=== PATIENT | male | born 1955 | race Caucasian/White ===

== ENCOUNTER → 2017-03-31 | Outpatient (CLI) | payer BC, OTHER ==
[~2017-03-31] MED LIST: ALIGN4 MG; ALTACE10 M1 PO; AMBIEN 10 MG TA10 MG PO; ASTELIN30 ML; CARDIZEM CD240 MG PO; CENTRUM SILVER1 EAC1; CLONAZEPAM PO; COQ-10100 MG; FLEXERIL; HYDROCODON-ACE1 EAC7; LIPITOR80 MG PO; MAGNES; MIDRIN CAPSULE1 CAP; MINIPRIN81 MG; NEXIUM40 MG PO; SYNTHROID PO; TRAMADOL 50 MG50 MG PO; ZYRTEC
== END ==
LOC: RAD 13:39
DX: R10.10 Upper abdominal pain, unspecified (principal)

== ENCOUNTER → 2017-04-02 | Outpatient (CLI) | payer BC, OTHER | LOC: ULTRA 15:09 | DX: R10.84 Generalized abdominal pain (principal) ==

== ENCOUNTER → 2017-10-25 | Outpatient (CLI) | payer BC, OTHER ==
[2017-10-25 09:34] LABS: CREATININE 1.1 mg/dL (0.7-1.3)
== END ==
LOC: MRI 10-11 10:13
PROVIDERS: Internal Medicine Pulmonary Disease
DX: M50.30 Other cervical disc degeneration, unspecified cervical region (principal); M48.02 Spinal stenosis, cervical region; G43.009 Migraine without aura, not intractable, without status migrainosus; I10 Essential (primary) hypertension; M25.78 Osteophyte, vertebrae; E78.5 Hyperlipidemia, unspecified; E89.0 Postprocedural hypothyroidism

== ENCOUNTER → 2018-01-21 | Outpatient (CLI) | payer BC, OTHER ==
--- NOTE | ~2018-01-21 | EXE ---
[facility] [address] STRESS ECHOCARDIOGRAM Name: JACINDA DAWSON Room #: REG CL MYael#: [id number] Admission: 01/21/18 Attend Phys: Monica Copeland Discharge: Date of : 57 Date of Service: 01/22/18 1512 Report #: [id number] THIS REPORT FOR: //name// APPROVED REPORT Exam: Stress Echocardiogram Indication: Pre-Operative CV evaluation Patient Location: Out-Patient Stress Nurse: Bing Vela RN Room #: Echo lab Status: routine Ht: 5 ft 8 in HR: 66 bpm BP: 133/86 mmHg Medical History Cardiac Risk Factors: FHX of CAD, HTN, Hyperlipidemia Procedure The patient underwent an Exercise Stress Test using the Luca Protocol. Blood pressure, heart rate, and EKG were monitored. An Echocardiogram was performed by dictaphone technician in four stages in quad fashion. At peak stress, four selected images were obtained and placed side by side with resting images for comparison. Stress Test Details Stress Test: Exercise stress testing was performed using a Luca protocol. HR Resting HR: 66 bpm Max Heart Rate (APMHR): 159 bpm Max HR Achieved: 169 bpm Target HR (85% APMHR): 135 bpm % of APMHR: 106 Recovery HR: 104 bpm HR response to stress: Normal HR response to stress BP Resting BP: 133/86 mmHg Max BP: 158/90 mmHg Recovery BP: 138/80 mmHg ECG Clinical Reason for Termination: Maximal effort Exercise duration: 12 min sec [facility] [email or web address] [address] STRESS ECHOCARDIOGRAM Name: JACINDA DAWSON Room #: REG CL [facility].#: [id number] Admission: 01/21/18 Attend Phys: Monica Copeland Discharge: Date of : 57 Date of Service: 01/22/181511 Report #: [id number] Highest Stage Achieved: Stage 4: 4.2 mph at 16% grade. Exercise capacity: 13.7 METs Overall Exercise Capacity for Age: Good Pre-Stress Echo The resting Echocardiogram showed normal left ventricular contractility with an estimated Ejection Fraction of about >55%. Post-Stress Echo The stress Echocardiogram showed normal left ventricular contractility with an estimated Ejection Fraction of about 65-70%. Clinical Normal augmentation of myocardial wall segments using a 17 segment model. Conclusion Clinical Response: Non-ischemic Exercise Capacity: Average Stress ECG Response: Non-ischemic Stress Echo Images: Non-ischemic Other Information Study Quality: Good <ELECTRONICALLY SIGNED> By: Koko Colón MD, [facility] 01/22/181511 11 1512 Koko Colón MD, FACC /INF
[2018-01-21 15:44] LABS: HEMATOCRIT 43.5 % (42.0-52.0); MCHC 34.5 g/dL (28.0-37.0); MCV 95.7 fL (80.0-100.0); RBC 4.55 mil/uL (4.50-6.00); WBC 4.4 thou/uL (4.0-11.0)
[2018-01-21 15:57] LABS: CALCIUM 9.6 mg/dL (8.5-10.1); CREATININE 1.2 mg/dL (0.7-1.3); POTASSIUM 4.3 mmol/L (3.5-5.1)
[2018-01-21 16:00] LABS: ALBUMIN 4.3 g/dL (3.4-5.0); MAGNESIUM 2.1 mg/dL (1.8-2.4); TOTAL BILIRUBIN 0.5 mg/dL (<0.1-1.0); TOTAL PROTEIN 6.6 g/dL (6.4-8.2)
== END ==
LOC: CV 11:46
PROVIDERS: Internal Medicine Pulmonary Disease
DX: Z01.818 Encounter for other preprocedural examination (principal); I25.10 Atherosclerotic heart disease of native coronary artery without angina pectoris; I10 Essential (primary) hypertension; I15.9 Secondary hypertension, unspecified

== ENCOUNTER → 2019-12-21 | Outpatient (CLI) | payer BC, OTHER ==
[~2019-12-21] VITALS: Ht 172.7 cm; Wt 81.6 kg
[~2019-12-21] MED LIST changes: +ASPIRIN EC81 M1 PO; +CENTRUM SILVER1 EAC7 PO; +CO Q-10300 MG PO; -COQ-10100 MG; -HYDROCODON-ACE1 EAC7; +HYDROCODON-ACE1 EAC7 PO; -MINIPRIN81 MG; +PROTONIX40 M4 PO; -SYNTHROID PO; +SYNTHROID200 MCG PO; +ZANAFLEX4 M2 PO; -ZYRTEC; +ZYRTEC10 M5 PO
--- NOTE | ~2019-12-21 | HPC ---
[facility] [place] [address] PAIN MANAGEMENT CONSULTATION Name: JACINDA DAWSON Room #: REG CL MDeepti.#: [id number] Admission: 12/21/19 Attend Phys: Daniel Eid MD Discharge: Date of : 57 Report #: [id number] THIS REPORT FOR: //name// CC: Ludwin Eid DATE OF SERVICE: 12/21/2019 CHIEF COMPLAINT: Pain in the neck and shoulders and constant daily headache. The patient is a pleasant 64-year-old who I am seeing today at the request of Dr. Feng Rust a good friend of the patient. He has had headaches, he reports since 1979. Headaches have been part of his life for at least the last 40 years. He has had multiple treatments. He has tried every pain medication regimen imaginable and has been seen at not only and their Neurology Department where he received Botox and their Pain Clinic where he received ablation, but at the [facility] where he received multiple medication trials. He has been to the [facility] 3 times, and most recently in the last 6 months, he was seen by the pain physicians there and also received radiofrequency ablation of the cervical facet joints, which did not provide relief. He has never had a procedural benefit. He has other pain management doctor was [facility] who [facility] him this year and gave him a cervical epidural injection also without relief. He reports he has a familial history of headaches. Both his father who early cardiac disease and his brother had similar severe headaches. His brother was able to be treated by Depakote but the patient did not find this helpful and had side effects. Over the last few years, he has started transition from daily headaches to daily headaches with an occasional classic migraine. These happen about once every month or two and can be severe. They do not have an aura, but they involve one side of his head. He has taken some Aimovig with some help with this component, but it does not help with his chronic daily headaches. Current headaches are bilateral, they begin in the occiput but radiate into the frontal region. They can be incapacitating at times and causes him to limit his activities. His pain impact score is 52/70, this is quite high showing significant impact in general activity, mood, walking, relations with others, sleep and enjoyment of life. CURRENT MEDICINES: Synthroid 200 mcg once daily, Lipitor 80 mg once daily for at least the last 15 years, perhaps longer; Cardizem 240 mg daily, ramipril 10 mg daily, pantoprazole 40 mg daily, clonazepam 0.5 mg b.i.d., Ambien 10 mg at bedtime, tizanidine 4 mg daily, hydrocodone 5/325 three tablets daily, 81 mg aspirin, Zyrtec, CoQ10, Centrum Silver. [address] [address] PAIN MANAGEMENT CONSULTATION Name: JACINDA DAWSON Room #: REG RAQUEL Carlson#: [id number] Admission: 12/21/19 Attend Phys: Daniel Eid MD Discharge: Date of : 57 Report #: [id number] Opioid review shows that he has been on opioids only for the last 2-3 years. Of all of the medication trials he has had, he has found opioids to provide the most relief. He on occasion has taken more than 3 a day, up to 4, but when he runs out. he is concerned. He is worried that he is taking the medication that is so controversial and he has some fear of opioids. Because of the improvement in pain and daily function, he continues to take them. He has completed an opioid risk tool and his score is 1. This is considered very low risk and is associated with his history of depression from his headaches. Otherwise, the score would be 0. He is exceptionally low risk for addiction. ALLERGIES: None. PAST MEDICAL HISTORY: Positive for hypertension, thyroid disease. FAMILY HISTORY: Very strong for cardiac disease and chronic headaches. SOCIAL HISTORY: Denies use of tobacco, denies use of alcohol, and has not smoked marijuana. 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 PHYSICAL EXAMINATION: GENERAL: He is pleasant, alert and oriented. HEENT: Normal. EOMs are intact. Mucous membranes are moist. He has some tenderness below the occiput. Cervical exam reveals decreased range of motion in flexion, extension, rotation, [id number] tilt. He complains of some crepitus with these movements. All movements are reduced by about 50% except for flexion, which is fairly normal. He has tenderness throughout the cervicalis splenius, capitis, trapezius and all muscles of the neck and upper shoulder girdle. CHEST: Clear. CARDIAC: Rhythm is regular. MUSCULOSKELETAL: Normal otherwise throughout. Deep tendon reflexes are normal at the biceps, triceps and brachioradialis, slightly diminished throughout. He has normal reflexes in lower extremities. Strength and sensation are normal in the upper and lower extremities. MRI scan is reviewed. It does show fairly significant spondylosis. There is a bit of degenerative disk disease. Although the report suggests anterior spondylolisthesis at C3-C4, it is certainly minimal. Mild spinal stenosis seen at C4-C5, but this is much less than we normally see in patients with radiculopathy. Multilevel facet degenerative changes are seen consistent with age. IMPRESSION: 1. Chronic daily headaches with some cervicogenic myofascial components radiating into the frontal region. [facility] [address] [place] [address] PAIN MANAGEMENT CONSULTATION Name: JACINDA DAWSON Room #: REG [facility] Lilly.#: [id number] Admission: 12/21/19 Attend Phys: Daniel Eid MD Discharge: Date of : 57 Report #: [id number] 2. 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 3. Hypertension. 4. Hyperlipidemia. RECOMMENDATIONS: 1. We discussed medications first. He has had multiple medication trials prior to initiating opioid therapy. Opioids are effective for him. We discussed the CDC guidelines at length. We discussed the opioid crisis. We calculated his morphine milligram equivalency. It is 15. Occasionally, he will take 20 morphine milligram equivalents on a severe day. He does not take it as an addict does but takes it as a medicine and finds that it is the most helpful for his pain and function that he has identified. It does not take his pain away, drops his pain by about 50%, but this is enough to allow him to function. He has had constipation and has used MiraLax. I suggest Senokot-S as perhaps some milder option taken at bedtime. MiraLax can be also taken as an adjunct. We discussed the effect of opioids on testosterone. He at 64, we would expect it to be low and may be lower than usual with daily use of hydrocodone even at low dose 15 MME. We reviewed all of his medications for possible headache contribution. Lipitor has been shown to cause headaches in the high percentage of patients. It is listed as #2 side effect. He is on 80 mg. His correlation of headache is fairly close to his initiation of Lipitor to 80 over 15 years ago. I do believe that statin therapy is likely warranted based on his history, but perhaps rotation to a different statin. Livalo may have fewer side effects. A trial off Lipitor for 3 weeks may give some indication. I want him to discuss that with Dr. Amin before he undertakes a short trial off of it to see about its component or contribution to his headache. We discussed kinesophobia. He does not move his neck much. This is probably not the best thing to do for someone with spondylosis. Like other joints, gentle range of motion seems to be of benefit. I demonstrated for him some simple range of motion exercises that he can performance in sets of 5, 3-4 times a day. This may improve range of motion, may improve joint mobility, and may also be helpful for any myofascial components. He is open to trying that. I reminded him that this might take months. I would not necessarily recommend stronger or higher doses of opioids; however, given the half-life of hydrocodone a fourth tablet a day for a total of 40 MME might provide him benefit. He could have a morning, noon, evening and bedtime dose. I am currently less apt to suggest a long-acting opioid for someone like the patient and would use low dose hydrocodone to achieve the lowest effective dose. I do not recommend injections at this time, but could consider some facet injections with triamcinolone. He has not had those. He seems to respond to [facility] [address] [place] [address] PAIN MANAGEMENT CONSULTATION Name: JACINDA DAWSON Room #: NAVEED Carlson#: [id number] Admission: 12/21/19 Attend Phys: Daniel Eid MD Discharge: Date of : 57 Report #: [id number] local anesthetic around the facet joints when he had his medial branch nerve blocks. No other suggestions. Thanks for the consultation. By: [id number] Daniel Eid MD /nt
[2019-12-21 14:29] VITALS: BP 137/92
--- NOTE | 2019-12-21 14:50 | NUR ---
Pain Clinic Assessment: 1. History of Osteoarthritis: NECK History of Rheumatoid Arthritis: DENIES 2. Height: 5 ft. 8 in. 172.7 cm. Weight: 180.0 lb. oz. 81.648 kg. Patient's BMI: 27.4 3. Vital Signs: BP: 137/92 Pulse: 57 Resp: 14 Temp: 02 Sat: 99 ECG Mon: 4. Pain Intensity: 6 5. Fall Risk: Dizziness: N Needs help standing or walking: N Fallen in the last 3 months: N Fall risk comments: 6. Patient on Blood Thinner: None 7. History of Hypertension: Y 8. Opioid Therapy greater than 6 weeks: Opiate Contract Signed: 9. Risk Assessment Tool Provided: 1-low 10. Functional Assessment Tool: 11. Recreational Drug Use: Never Drug Type: Tobacco Use: Never Smoker Tobacco Type: Amount or Packs/day: How Many Years: Alcohol Use: No Frequency: Quant:
== END ==
LOC: PAIN 06:49
DX: M54.2 Cervicalgia (principal); R51 Headache; I10 Essential (primary) hypertension; E78.5 Hyperlipidemia, unspecified

== ENCOUNTER → 2020-06-06 | Outpatient (CLI) | payer BC, OTHER ==
[~2020-06-06] VITALS: Ht 172.7 cm; Wt 78.1 kg
--- NOTE | ~2020-06-06 | HPC ---
[facility] [place] [address] PAIN MANAGEMENT CONSULTATION Name: JACINDA DAWSON Room #: REG CLMariya MAma.#: [id number] Admission: 06/06/20 Attend Phys: Daniel Eid MD Discharge: Date of : 57 Report #: [id number] THIS REPORT FOR: cc: Yana Rust MD, A. Cosmo MD Morgan, Richard L. MD ~ CC: Ludwin Eid Followup visit for severe neck pain with occipital radiation, constant daily headaches and radiating shoulder pain with referred and radicular components. Dr. Rust called me and asked me if I would see the patient again. I saw him in November and wrote an extensive consult, which is on the chart, which I reviewed prior to his visit of today. We discussed that consultation. He continues to take medications, but has not found them to be adequate. His constant daily pain score is 6/10 and his pain interferes with most activities of daily living. He describes it as a constant, burning, aching and stabbing. His headaches are getting worse. They seem to have a cervicogenic origin. Reviewing his records, I again find it remarkable that he has been seen by so many physicians and so widely over the last several years. He has been to Neurology, [facility], [facility] and seen other pain physicians throughout the community. He has had many injections including multiple cervical facet joint injections and treatments including radiofrequency perhaps only one epidural injection by Dr. [facility], and during today's exam, I noticed 2 small scars that I did not see during my initial exam. It was only from these that he remembered that he had a surgical decompression procedure performed many years ago and the scars are the only telltale signs with that history. Mechanical treatments including massage and gentle range of motion exercises have not been pursued. He remains on medications prescribed by ___, his primary care physician. He is on oxycodone 10/325 four times daily and this helps marginally. MEDICATIONS: Levothyroxine, diltiazem, ramipril, clonazepam 0.25 mg b.i.d., Ambien, cetirizine, aspirin, CoQ10, tizanidine 4 mg daily, atorvastatin, pantoprazole, and the mentioned hydrocodone 5/325. He has completed an opioid risk tool in our clinic. His ORT score is 1. This suggests a low risk of addiction. His functional assessment score repeated today, it is 44/70. Gauges impact of pain on day-to-day activities, he scored a 52/70 at his initial visit, so there is a slight improvement there albeit [facility] [address] [place] [address] PAIN MANAGEMENT CONSULTATION Name: JACINDA DAWSON Room #: REG CLI Aldo#: [id number] Admission: 06/06/20 Attend Phys: Daniel Eid MD Discharge: Date of : 57 Report #: [id number] somewhat subjective. PHYSICAL EXAMINATION: GENERAL: We were both wearing masks because of COVID restrictions. VITAL SIGNS: He is 5 feet 8, 172, BMI 26. Blood pressure 130/87, heart rate 52, respirations 18, O2 sat 97 on room air. Pain intensity 6/10. HEENT: Reveals pupils to be equal, round, and reactive to light. EOMs are intact. NECK: Restricted in all planes with increased pain in the neck posteriorly and a fairly small localized area in the mid neck with both flexion and extension, both lateral tilt right and left and rotational movements as well. Examination of the neck reveals the two scars just below the occiput from prior surgical procedure. There is modest muscle tension suggesting myofascial component. NEUROLOGIC: Reveals normal deep tendon reflexes bilaterally at biceps, triceps and brachioradialis. Reflexes are normal in the lower extremities. Good groutman strength, biceps and triceps strength. Denies numbness in the fingers. Myofascial tender points are noted throughout the neck and shoulders. IMPRESSION: Chronic cervicalgia with corresponding cervicogenic headaches. Myofascial pain, facet mediated pain and some evidence of radiculopathy. RECOMMENDATIONS: My recommendations are little change from my initial consult on 12/21/2019. I did discuss some simple procedures that might be tried once again simply to provide short-term pain relief. Epidural injection, I think would be worthwhile. It is a simple injection can be performed safely in a number of our patients with multifocal pain caused by many pain generators and respond favorably with symptomatic reduction in pain lasting months with a single epidural injection. If we can achieve that it might be a tool for him going forward. I would also consider the use of lateral approach facet injections into the capsule around C3-C4, C4-C5 where he has maximal tenderness bilaterally. These can be done, I think safely with biplanar fluoroscopic views and may service deep trigger point as well. Plans to return for epidural trial. By: [id number] Daniel Eid MD /nt
[2020-06-06 11:19] VITALS: BP 130/87
--- NOTE | 2020-06-06 11:24 | NUR ---
Pain Clinic Assessment: 1. History of Osteoarthritis: NECK History of Rheumatoid Arthritis: DENIES 2. Height: 5 ft. 8 in. 172.7 cm. Weight: 172.2 lb. oz. 78.109 kg. Patient's BMI: 26.2 3. Vital Signs: BP: 130/87 Pulse: 52 Resp: 18 Temp: 02 Sat: 97 ECG Mon: 4. Pain Intensity: 6 5. Fall Risk: Dizziness: N Needs help standing or walking: N Fallen in the last 3 months: N Fall risk comments: 6. Patient on Blood Thinner: None 7. History of Hypertension: Y 8. Opioid Therapy greater than 6 weeks: Y Opiate Contract Signed: 9. Risk Assessment Tool Provided: 1-low 10. Functional Assessment Tool: 11. Recreational Drug Use: Never Drug Type: Tobacco Use: Never Smoker Tobacco Type: Amount or Packs/day: How Many Years: Alcohol Use: No Frequency: Quant:
== END ==
LOC: PAIN 07:04
PROVIDERS: ATTEND Anesthesiology Pain Medicine
DX: R51 Headache (principal); M54.12 Radiculopathy, cervical region; Z79.899 Other long term (current) drug therapy

== ENCOUNTER → 2020-06-17 | Outpatient (CLI) | payer BC, OTHER ==
[~2020-06-17] VITALS: Ht 172.7 cm; Wt 77.4 kg
--- NOTE | ~2020-06-17 | HPC ---
[facility] [place] [place] [address] PAIN MANAGEMENT CONSULTATION Name: JACINDA DAWSON Room #: REG CL M..#: [id number] Admission: 06/17/20 Attend Phys: Daniel Eid MD Discharge: Date of : 57 Report #: [id number] THIS REPORT FOR: cc: Markell Acosta MD, Michael E. MD Morgan,Daniel Marcano MD ~ CC: Ludwin Eid DATE OF SERVICE: 06/17/2020 Followup visit for cervical pain with occipital and cervicogenic headaches. After lengthy consultation on 06/06/2020, the patient is here today for cervical epidural injection, we discussed. Plan is to inject him at the base of the cervical spine with a larger volume of medicine fully spread throughout the canal. We will see if we can provide some interruption of the pain cycle through this procedure. Potential benefits and risks were reviewed in some detail. He is anxious to proceed. DIAGNOSES: Cervicalgia with cervicogenic headaches, myofascial pain and radiculopathy. PROCEDURE: Cervical epidural injection under fluoroscopic guidance. After informed consent, he was taken to the fluoroscopic suite, placed prone, skin prepped with ChloraPrep. Skin was anesthetized over C7-T1. A 20-gauge Tuohy epidural needle advanced in first attempt in the epidural space with loss of resistance technique. There was no blood or CSF aspirated. A 1 mL of Omnipaque injected. Good spread of dye observed along the right lateral recess. Interestingly, the needle was left paramedian on the x-ray, but the dye tended to spread initially at least to the right. It was then followed by 4 mL of 0.5% lidocaine mixed with 80 mg of triamcinolone. He tolerated the procedure well. There were no complications. He was observed in recovery room for a short time and discharged. Followup visit planned in 2-4 weeks. Further treatments will depend solely on his response, may consider this as a treatment option going forward if he has a favorable response and duration. By: [id number] Daniel Eid MD /nt
[2020-06-17 15:09] VITALS: BP 129/90
--- NOTE | 2020-06-17 15:20 | NUR ---
Pain Clinic Assessment: 1. History of Osteoarthritis: NECK History of Rheumatoid Arthritis: DENIES 2. Height: 5 ft. 8 in. 172.7 cm. Weight: 170.6 lb. oz. 77.384 kg. Patient's BMI: 25.9 3. Vital Signs: BP: 129/90 Pulse: 52 Resp: 14 Temp: 02 Sat: 100 ECG Mon: 4. Pain Intensity: 7-8 5. Fall Risk: Dizziness: N Needs help standing or walking: N Fallen in the last 3 months: N Fall risk comments: 6. Patient on Blood Thinner: None 7. History of Hypertension: Y 8. Opioid Therapy greater than 6 weeks: Y Opiate Contract Signed: 9. Risk Assessment Tool Provided: 1-low 10. Functional Assessment Tool: 11. Recreational Drug Use: Never Drug Type: Tobacco Use: Never Smoker Tobacco Type: Amount or Packs/day: How Many Years: Alcohol Use: No Frequency: Quant:
== END | disposition home or self-care (01) ==
LOC: PAIN 07:14
PROVIDERS: ATTEND Anesthesiology Pain Medicine
DX: M54.12 Radiculopathy, cervical region (principal); M79.18 Myalgia, other site; G44.89 Other headache syndrome; G89.29 Other chronic pain; Z98.890 Other specified postprocedural states; Z79.899 Other long term (current) drug therapy

== ENCOUNTER → 2021-02-03 | Outpatient (CLI) | payer BC, OTHER ==
[~2021-02-03] VITALS: Ht 172.7 cm; Wt 78.7 kg
[2021-02-03 13:42] VITALS: BP 131/74
--- NOTE | 2021-02-03 13:51 | NUR ---
Pain Clinic Assessment: 1. History of Osteoarthritis: NECK History of Rheumatoid Arthritis: DENIES 2. Height: 5 ft. 8 in. 172.7 cm. Weight: 173.6 lb. oz. 78.744 kg. Patient's BMI: 26.4 3. Vital Signs: BP: 131/74 Pulse: 57 Resp: 14 Temp: 02 Sat: 99 ECG Mon: 4. Pain Intensity: 7 5. Fall Risk: Dizziness: N Needs help standing or walking: N Fallen in the last 3 months: N Fall risk comments: 6. Patient on Blood Thinner: None 7. History of Hypertension: Y 8. Opioid Therapy greater than 6 weeks: Y Opiate Contract Signed: 9. Risk Assessment Tool Provided: 1-low 10. Functional Assessment Tool: 11. Recreational Drug Use: Never Drug Type: Tobacco Use: Never Smoker Tobacco Type: Amount or Packs/day: How Many Years: Alcohol Use: No Frequency: Quant:
== END ==
LOC: PAIN 06:54
PROVIDERS: ATTEND Anesthesiology Pain Medicine
DX: M54.16 Radiculopathy, lumbar region (principal); R51.9 Headache, unspecified; M54.81 Occipital neuralgia; Z88.8 Allergy status to other drugs, medicaments and biological substances; Z79.899 Other long term (current) drug therapy

== ENCOUNTER → 2021-02-13 | Outpatient (CLI) | payer BC, OTHER ==
[~2021-02-13] VITALS: Ht 172.7 cm; Wt 77.1 kg
[2021-02-13 08:57] VITALS: BP 118/84
--- NOTE | 2021-02-13 09:00 | NUR ---
Pain Clinic Assessment: 1. History of Osteoarthritis: NECK History of Rheumatoid Arthritis: DENIES 2. Height: 5 ft. 8 in. 172.7 cm. Weight: 170.0 lb. oz. 77.112 kg. Patient's BMI: 25.9 3. Vital Signs: BP: 118/84 Pulse: 64 Resp: 16 Temp: 02 Sat: 98 ECG Mon: 4. Pain Intensity: 7 5. Fall Risk: Dizziness: N Needs help standing or walking: N Fallen in the last 3 months: N Fall risk comments: 6. Patient on Blood Thinner: None 7. History of Hypertension: Y 8. Opioid Therapy greater than 6 weeks: Y Opiate Contract Signed: 9. Risk Assessment Tool Provided: 1-low 10. Functional Assessment Tool: 11. Recreational Drug Use: Never Drug Type: Tobacco Use: Never Smoker Tobacco Type: Amount or Packs/day: How Many Years: Alcohol Use: No Frequency: Quant:
== END ==
LOC: PAIN 06:35
PROVIDERS: ATTEND Anesthesiology Pain Medicine
DX: M54.12 Radiculopathy, cervical region (principal)